=== PATIENT | male | born 1940 | race Caucasian/White ===

== ENCOUNTER 2019-03-07 20:04 | Emergency (ER) | payer MEDICARE ==
--- NOTE | 2019-03-07 20:30 | ED ---
Weakness HPI - General Source: patient, EMS, RN notes reviewed Mode of arrival: EMS Limitations: no limitations - History of Present Illness MD Complaint: generalized weakness <Antione Bustos - Last Filed: 03/07/19 20:44> <Lonny Salter - Last Filed: 03/07/19 23:15> - General Chief complaint: Weakness Stated complaint: weakness Time Seen by Provider: 03/07/19 20:10 - History of Present Illness Initial comments: This is a 78-year-old male with history of leukemia who is brought in by EMS because of generalized weakness. He also states he had rhinorrhea recently but somewhat chronic. He denies any fevers chills nausea vomiting sweats cough he states he's eating well has no focal weakness no other modifying factors at this time. He is currently on oral medication for leukemia. (Antione Bustos) - Related Data Home Medications Medication Instructions Recorded Confirmed Furosemide [Lasix] 40 mg PO DAILY 01/04/14 03/07/19 Simvastatin [Zocor] 40 mg PO HS 01/04/14 03/07/19 Terazosin [Hytrin] 5 mg PO HS 01/04/14 03/07/19 Aspirin EC [Ecotrin Low Dose] 81 mg PO DAILY 03/07/19 03/07/19 Ibrutinib [Imbruvica] 420 mg PO DAILY 03/07/19 03/07/19 Metoprolol Tartrate [Lopressor] 50 mg PO BID 03/07/19 03/07/19 Pioglitazone [Actos] 45 mg PO DAILY 03/07/19 03/07/19 metFORMIN HCL ER [Glucophage Xr] 1,000 mg PO BID 03/07/19 03/07/19 Previous Rx's Medication Instructions Recorded Ciprofloxacin HCl [Cipro] 500 mg PO Q12HR #14 tablet 03/07/19 Allergies Allergy/AdvReac Type Severity Reaction Status Date / Time No Known Allergies Allergy Verified 03/07/19 23:03 Review of Systems ROS Other: All systems not noted in ROS Statement are negative. <Antione Bustos - Last Filed: 03/07/19 20:44> ROS Other: All systems not noted in ROS Statement are negative. <Lonny Salter - Last Filed: 03/07/19 23:15> ROS Statement: Those systems with pertinent positive or pertinent negative responses have been documented in the HPI. 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, just finished chemo round 4 of 4 on 01-10 History of Any Multi-Drug Resistant Organisms: None Reported Past Surgical History: No Surgical Hx Reported Past Anesthesia/Blood Transfusion Reactions: No Reported Reaction Past Psychological History: No Psychological Hx Reported Smoking Status: Former smoker Past Alcohol Use History: Occasional Past Drug Use History: None Reported - Past Family History Father Family Medical History: CVA/TIA Mother Family Medical History: Myocardial Infarction ([place]) <Antione Bustos - Last Filed: 03/07/19 20:44> General Exam Limitations: no limitations General appearance: alert, in no apparent distress Head exam: Present: atraumatic, normocephalic, normal inspection Eye exam: Present: normal appearance, PERRL, EOMI. Absent: scleral icterus, conjunctival injection, periorbital swelling ENT exam: Present: mucous membranes dry, other (Boggy nasal mucosa) Neck exam: Present: normal inspection. Absent: tenderness, meningismus, lymphadenopathy Respiratory exam: Present: normal lung sounds bilaterally. Absent: respiratory distress, wheezes, rales, rhonchi, stridor Cardiovascular Exam: Present: regular rate, normal rhythm, normal heart sounds. Absent: systolic murmur, diastolic murmur, rubs, gallop, clicks GI/Abdominal exam: Present: soft, normal bowel sounds. Absent: distended, tenderness, guarding, rebound, rigid Extremities exam: Present: normal inspection, full ROM, normal capillary refill. Absent: tenderness, pedal edema, joint swelling, calf tenderness Back exam: Present: normal inspection Neurological exam: Present: alert, oriented X3, CN II-XII intact Psychiatric exam: Present: normal affect, normal mood Skin exam: Present: warm, dry, intact, normal color. Absent: rash <Antione Bustos - Last Filed: 03/07/19 20:44> - General Exam Comments Initial Comments: This is a well-developed asthenic appearing male who is awake alert oriented 3 (Antione Bustos) Course <Antione Bustos - Last Filed: 03/07/19 20:44> Vital Signs 03/07/19 03/07/19 03/07/19 20:08 21:31 23:00 Temperature 98.1 F 98.3 F Pulse Rate 80 73 76 Respiratory 20 18 18 Rate Blood Pressure 158/82 140/73 148/74 O2 Sat by Pulse 99 96 99 Oximetry - Reevaluation(s) Reevaluation #1: 03/07/19 20:44 The patient's care will be endorsed to Dr. Salter at our shift change. (Antione Bustos) Medical Decision Making - Lab Data Result diagrams: 03/07/19 20:26 03/07/19 20:26 <Lonny Salter - Last Filed: 03/07/19 23:15> - Medical Decision Making I receive this patient has a sign out, pending the lab results. The patient's results look good. The leukocytosis is markedly improved. There are few white blood cells in the urine. I did discuss the findings with the patient who would prefer to go home and follow with his physician. Given that he was too weak to walk at home, will attempt to ambulate the patient here and then if she is able to manage she can go home with course of antibiotic and follow-up. Return parameters discussed with patient and family. (Lonny Salter) - Lab Data Lab Results 03/07/19 03/07/19 03/07/19 Range/Units 20:26 20:26 20:26 WBC 16.5 H (3.8-10.6) k/uL RBC 4.07 L (4.30-5.90) m/uL Hgb 12.2 L (13.0-17.5) gm/dL Hct 38.6 L (39.0-53.0) % MCV 94.7 (80.0-100.0) fL MCH 30.0 (25.0-35.0) pg MCHC 31.7 (31.0-37.0) g/dL RDW 15.3 (11.5-15.5) % Plt Count 111 L (150-450) k/uL Neutrophils % 33 % Lymphocytes % 60 % Monocytes % 4 % Eosinophils % 0 % Basophils % 0 % Neutrophils # 5.5 (1.3-7.7) k/uL Lymphocytes # 9.8 H (1.0-4.8) k/uL Monocytes # 0.7 (0-1.0) k/uL Eosinophils # 0.1 (0-0.7) k/uL Basophils # 0.1 (0-0.2) k/uL Manual Slide Review Performed Poikilocytosis (manual Present Sodium 140 (137-145) mmol/L Potassium 4.2 (3.5-5.1) mmol/L Chloride 109 H (98-107) mmol/L Carbon Dioxide 22 (22-30) mmol/L Anion Gap 9 mmol/L BUN 17 (9-20) mg/dL Creatinine 1.23 (0.66-1.25) mg/dL Est GFR (CKD-EPI)AfAm 65 (>60 ml/min/1.73 sqM) Est GFR (CKD-EPI)NonAf 56 (>60 ml/min/1.73 sqM) Glucose 143 H (74-99) mg/dL Plasma Lactic Acid [place] 1.7 (0.7-2.0) mmol/L Calcium 8.4 (8.4-10.2) mg/dL Magnesium 1.9 (1.6-2.3) mg/dL Total Bilirubin 0.6 (0.2-1.3) mg/dL AST 18 (17-59) U/L ALT 10 (4-49) U/L Alkaline Phosphatase 35 L (38-126) U/L Creatine Kinase 46 L (55-170) U/L Troponin I (0.000-0.034) ng/mL Total Protein 6.0 L (6.3-8.2) g/dL Albumin 3.6 (3.5-5.0) g/dL Lipase 94 (23-300) U/L Urine Color Urine Appearance (Clear) Urine pH (5.0-8.0) Ur Specific [place] (1.001-1.035) Urine Protein (Negative) Urine Glucose (UA) (Negative) Urine Ketones (Negative) Urine Blood (Negative) Urine Nitrite (Negative) Urine Bilirubin (Negative) Urine Urobilinogen (<2.0) mg/dL Ur Leukocyte Esterase (Negative) Urine RBC (0-5) /hpf Urine WBC (0-5) /hpf Hyaline Casts (0-2) /lpf Urine Mucus (None) /hpf Influenza Type A RNA (Not Detectd) Influenza Type B (PCR) (Not Detectd) 03/07/19 03/07/19 03/07/19 Range/Units 20:26 21:30 21:32 WBC (3.8-10.6) k/uL RBC (4.30-5.90) m/uL Hgb (13.0-17.5) gm/dL Hct (39.0-53.0) % MCV (80.0-100.0) fL MCH (25.0-35.0) pg MCHC (31.0-37.0) g/dL RDW (11.5-15.5) % Plt Count (150-450) k/uL Neutrophils % % Lymphocytes % % Monocytes % % Eosinophils % % Basophils % % Neutrophils # (1.3-7.7) k/uL Lymphocytes # (1.0-4.8) k/uL Monocytes # (0-1.0) k/uL Eosinophils # (0-0.7) k/uL Basophils # (0-0.2) k/uL Manual Slide Review Poikilocytosis (manual Sodium (137-145) mmol/L Potassium (3.5-5.1) mmol/L Chloride (98-107) mmol/L Carbon Dioxide (22-30) mmol/L Anion Gap mmol/L BUN (9-20) mg/dL Creatinine (0.66-1.25) mg/dL Est GFR (CKD-EPI)AfAm (>60 ml/min/1.73 sqM) Est GFR (CKD-EPI)NonAf (>60 ml/min/1.73 sqM) Glucose (74-99) mg/dL Plasma Lactic Acid [place] (0.7-2.0) mmol/L Calcium (8.4-10.2) mg/dL Magnesium (1.6-2.3) mg/dL Total Bilirubin (0.2-1.3) mg/dL AST (17-59) U/L ALT (4-49) U/L Alkaline Phosphatase (38-126) U/L Creatine Kinase (55-170) U/L Troponin I <0.012 (0.000-0.034) ng/mL Total Protein (6.3-8.2) g/dL Albumin (3.5-5.0) g/dL Lipase (23-300) U/L Urine Color Light Yellow Urine Appearance Clear (Clear) Urine pH 6.5 (5.0-8.0) Ur Specific [place] 1.007 (1.001-1.035) Urine Protein Negative (Negative) Urine Glucose (UA) Negative (Negative) Urine Ketones Negative (Negative) Urine Blood Trace H (Negative) Urine Nitrite Negative (Negative) Urine Bilirubin Negative (Negative) Urine Urobilinogen <2.0 (<2.0) mg/dL Ur Leukocyte Esterase Small H (Negative) Urine RBC 3 (0-5) /hpf Urine WBC 19 H (0-5) /hpf Hyaline Casts 1 (0-2) /lpf Urine Mucus Rare H (None) /hpf Influenza Type A RNA Not Detected (Not Detectd) Influenza Type B (PCR) Not Detected (Not Detectd) Disposition <Antione Bustos - Last Filed: 03/07/19 20:44> Is patient prescribed a controlled substance at d/c from ED?: No <Lonny Salter - Last Filed: 03/07/19 23:15> Clinical Impression: Generalized weakness, Urinary tract infection Disposition: HOME SELF-CARE Condition: Fair Instructions (If sedation given, give patient instructions): Weakness (ED), Urinary Tract Infection in Men (ED) Prescriptions: Ciprofloxacin HCl [Cipro] 500 mg PO Q12HR #14 tablet Referrals: Teddy Mcneal MD [Primary Care Provider] - 1-2 days
[2019-03-07 21:04] LABS: Albumin 3.6 g/dL (3.5-5.0); Calcium 8.4 mg/dL (8.4-10.2); Magnesium 1.9 mg/dL (1.6-2.3); Potassium 4.2 mmol/L (3.5-5.1); Total Bilirubin 0.6 mg/dL (0.2-1.3)
[2019-03-07 21:17] LABS: Basophils # (A) 0.1 k/uL (0-0.2); Basophils % (A) 0 %; Eosinophils # (A) 0.1 k/uL (0-0.7); Eosinophils % (A) 0 %; HCT 38.6 % (39.0-53.0); HGB 12.2 gm/dL (13.0-17.5); Lymphocytes # (A) 9.8 k/uL (1.0-4.8); Lymphocytes % (A) 60 %; MCHC 31.7 g/dL (31.0-37.0); MCV 94.7 fL (80.0-100.0); Mean Platelet Volume 10.3; Monocytes # (A) 0.7 k/uL (0-1.0); Monocytes % (A) 4 %; Neutrophils # (A) 5.5 k/uL (1.3-7.7); Neutrophils % (A) 33 %; Platelet Count 111 k/uL (150-450); RBC 4.07 m/uL (4.30-5.90); RDW 15.3 % (11.5-15.5); WBC 16.5 k/uL (3.8-10.6)
--- NOTE | 2019-03-07 21:26 | XR ---
EXAMINATION TYPE: XR chest 2V DATE OF EXAM: 03/07/2019 COMPARISON: 02/03/2014 HISTORY: Weakness TECHNIQUE: FINDINGS: Heart is normal. Lungs are clear of consolidation. There are no hilar masses. Costophrenic angles are clear. There is some spurring in the thoracic spine. Bony thorax is intact. IMPRESSION: No active cardiopulmonary disease. There is clearing of airspace infiltrates in both lung s compared to last exam. Normal heart.
[2019-03-07 21:31] VITALS: RESP 18
[2019-03-07 21:53] LABS: Poikilocytosis (M) Present
[2019-03-07 22:10] LABS: Appearance,Urine Clear (Clear); Bilirubin,Urine Negative (Negative); Blood,Urine Trace (Negative); Color,Urine Light Yellow; Glucose,Urine (UA) Negative (Negative); Hyaline Casts,Urine 1 /lpf (0-2); Ketones,Urine Negative (Negative); Leukocyte Esterase,Urine Small (Negative); Mucus,Urine Rare /hpf; Nitrite,Urine Negative (Negative); PH, Urine 6.5 (5.0-8.0); Protein,Urine Negative (Negative); RBC,Urine 3 /hpf (0-5); Specific Gravity,Urine 1.007 (1.001-1.035); Urobilinogen,Urine <2.0 mg/dL (<2.0); WBC,Urine 19 /hpf (0-5)
[2019-03-07] MEDS ORDERED: LEVOFLOXACIN 750 MG TAB PO STA (22:55)
[2019-03-07 23:38] VITALS: BP 141/72; PULSE 75; TEMP 98.1
== END 2019-03-07 23:25 | disposition home or self-care (01) ==
LOC: EC 20:04
DX: N39.0 Urinary tract infection, site not specified (principal); R53.1 Weakness; C95.90 Leukemia, unspecified not having achieved remission; J34.89 Other specified disorders of nose and nasal sinuses; M19.90 Unspecified osteoarthritis, unspecified site; E78.5 Hyperlipidemia, unspecified; N42.9 Disorder of prostate, unspecified; I10 Essential (primary) hypertension; E11.9 Type 2 diabetes mellitus without complications; Z87.891 Personal history of nicotine dependence; Z79.82 Long term (current) use of aspirin; Z79.84 Long term (current) use of oral hypoglycemic drugs; Z79.899 Other long term (current) drug therapy; Z92.21 Personal history of antineoplastic chemotherapy
CPT/HCPCS: 36415; 71046; 80053; 81001; 82550; 83605; 83690; 83735; 84484; 85025; 87040; 87086; 87502; 93005; 99285

== ENCOUNTER 2019-03-10 13:55 | Inpatient (IN) | payer MEDICARE ==
[2019-03-10 15:16] LABS: Glucose,Whole Blood 117 mg/dL (75-99)
[2019-03-10 15:21] VITALS: PULSE 70; RESP 16
[2019-03-10] MEDS ORDERED: DEXTROSE 5%-0.45% NACL 1,000 ML IV SCH (15:30)
[2019-03-10] MEDS ORDERED: HYDROcodone/APAP 5-325MG 1 EACH TAB PO PRN (15:33)
[2019-03-10] MEDS ORDERED: NALOXONE 0.4 MG/ML 1 ML VIAL IV PRN (15:33)
[2019-03-10] MEDS ORDERED: ACETAMINOPHEN TAB 325 MG TAB PO PRN (15:33)
--- NOTE | 2019-03-10 15:52 | CT ---
EXAMINATION TYPE: CT brain wo con for TPA DATE OF EXAM: 03/10/2019 COMPARISON: None HISTORY: 78-year-old male confusion, Code stroke. Mental status changes. Rule out CVA. TECHNIQUE: Examination was done in axial plane without intravenous contrast. Coronal and sagittal r econstructions performed. CT DLP: 1110.8 mGycm Automated exposure control for dose reduction was used. FINDINGS: There is a sizable mixed density subdural hematoma on the right measuring up to 2.7 cm thick. Most of the hematoma is subacute or chronic with near CSF density but with prominent admixed acute blood als o present. There is slight medial uncal herniation demonstrated and is all seen herniation as well. L eftward midline shift measuring up to 1.4 cm with flattening of the right lateral ventricle and mass effect onto the right cerebral hemisphere. Atherosclerotic calcifications within the carotid siphons. Partially empty sella. Scattered mild mucosal thickening ethmoid air cells and maxillary sinuses. Mastoid air cells are pneu matized. IMPRESSION: 1. Moderate sized subdural hematoma along the right lateral convexity. This is a mixed age subdural h ematoma mostly subacute to chronic blood products but with prominent admixed acute blood as well. 2. Mass effect onto the underlying right cerebral hemisphere results in flattening of the right later al ventricle, subfalcine herniation, early medial right uncal herniation, and 1.4 cm of leftward midl ine shift. Critical findings called to Nurse Graves on 3SCARD at 3:45pm.
--- NOTE | 2019-03-10 16:16 | CT ---
EXAMINATION TYPE: CODE STROKE: CTA head neck DATE OF EXAM: 03/10/2019 COMPARISON: Correlation CT brain same day HISTORY: 78-year-old male confusion, rule out CVA, Code stroke. Mental status changes. TECHNIQUE: Contiguous axial scanning of the head and neck performed with IV Contrast, patient injecte d with 65 mL of Isovue 370. Coronal/sagittal MIP reconstructions performed. 3-D reconstructions gener ated on a dedicated independent workstation. CT DLP: 463.1 mGycm Automated exposure control for dose reduction was used. FINDINGS: NECK: Coronary artery calcifications. Calcified granuloma anterior left upper lobe. Underlying emphysematou s change. LAD calcifications. Mild atherosclerotic arch calcifications within the chart vessel branching anatomy. The right common and internal carotid arteries are patent. Slightly tortuous course of the upper righ t ICA. Left common and internal carotid arteries are patent. There are only mild atherosclerotic calcifications at the bifurcations on both sides. Mild atherosclerotic calcifications proximal left vertebral artery. The vertebral arteries appear cod ominant and otherwise patent throughout the course. HEAD: The vertebral and basilar arteries are patent as is the remainder of the posterior circulation. Mild atherosclerotic calcifications throughout the bilateral carotid siphons weight areas of mild mally rowing. The bilateral internal carotid arteries are patent as is the remainder of the anterior circulation. T here is no compromise of the anterior cerebral arteries given the subfalcine herniation. No aneurysmal change. IMPRESSION: NECK: 1. ONLY MILD ATHEROSCLEROTIC CALCIFICATIONS OF THE BILATERAL BIFURCATIONS. NO SIGNIFICANT STENOSIS OF EITHER COMMON OR INTERNAL CAROTID ARTERIES ON EITHER SIDE. 2. MILD ATHEROSCLEROTIC CALCIFICATIONS AT THE ORIGIN OF THE LEFT VERTEBRAL ARTERY. 3. COPD. HEAD: 1. MILD ATHEROSCLEROTIC CALCIFICATIONS IN THE CAROTID SIPHONS. 2. NO LARGE VESSEL INTRACRANIAL ARTERIAL OCCLUSION, SIGNIFICANT STENOSIS, OR ANEURYSMAL CHANGES SEEN. 3. RIGHT-SIDED SUBDURAL HEMATOMA WITH MASS EFFECT AND LEFTWARD MIDLINE SHIFT DESCRIBED ON CT HEAD REP ORT SAME DAY.
--- NOTE | 2019-03-10 16:33 | P.CONS ---
History of Present Illness - Reason for Consult Consult date: 03/10/19 Medical management Requesting physician: Colten Dickson - Chief Complaint Left-sided weakness - History of Present Illness 78-year-old male with PMH of CLL, diabetes mellitus, hypertension, dyslipidemia presents to the ED as a direct admission from the oncology clinic for left-sided weakness and workup for stroke. Code stroke was called as soon as I was able to see the patient. Patient reports slipping out of his couch on Thursday as he was trying to go to the bathroom. He was brought to the ED at that time. Vital signs at that time was within normal limits except for elevated BP. He leukocytosis of 16.5 and hemoglobin of 12.2 with thrombocytopenia platelet count 111. There is no head imaging done at that time. Patient was discharged home from the ED. His reports that patient has been progressively getting weak since then. During his appointment with his oncologist today there was some concerns for stroke, which prompted direct admission by Dr. Dickson. Patient denies any confusion. He denies any loss of consciousness during the initial fall. He denies any head trauma. He denies any slurred speech or difficulty swallowing. Patient reports left-sided weakness has been ongoing since this fall on Thursday. He denies any dizziness, numbness/tingling of the extremities. Patient denies any headache, lower extremity edema, nausea or vomiting, fever or chills, cough, chest pain, shortness of breath, palpitations, changes in urination or bowel habits. Patient does report intermittent diarrhea but attributes that to the medications he takes for CLL. Review of Systems Pertinent positives and negatives as discussed in HPI, a complete review of systems was performed and all other systems are negative. 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, just finished chemo round 4 of 4 on 01-10 History of Any Multi-Drug Resistant Organisms: None Reported Past Surgical History: No Surgical Hx Reported Past Anesthesia/Blood Transfusion Reactions: No Reported Reaction Past Psychological History: No Psychological Hx Reported Smoking Status: Former smoker Past Alcohol Use History: Occasional Past Drug Use History: None Reported - Past Family History Father Family Medical History: CVA/TIA Mother Family Medical History: Myocardial Infarction ([place]) Medications and Allergies Home Medications Medication Instructions Recorded Confirmed Type Furosemide [Lasix] 40 mg PO DAILY 01/04/14 03/10/19 History Simvastatin [Zocor] 40 mg PO HS 01/04/14 03/10/19 History Terazosin [Hytrin] 5 mg PO HS 01/04/14 03/10/19 History Aspirin EC [Ecotrin Low Dose] 81 mg PO DAILY 03/07/19 03/10/19 History Ciprofloxacin HCl [Cipro] 500 mg PO Q12HR #14 tablet 03/07/19 03/10/19 Rx Ibrutinib [Imbruvica] 420 mg PO DAILY 03/07/19 03/10/19 History Metoprolol Tartrate [Lopressor] 50 mg PO BID 03/07/19 03/10/19 History Pioglitazone [Actos] 45 mg PO DAILY 03/07/19 03/10/19 History metFORMIN HCL ER [Glucophage Xr] 1,000 mg PO BID 03/07/19 03/10/19 History Allergies Allergy/AdvReac Type Severity Reaction Status Date / Time No Known Allergies Allergy Verified 03/10/19 15:13 Physical Exam Vitals: Vital Signs Temp Pulse Resp BP Pulse Ox 03/10/19 15:00 98.1 F 70 16 155/68 97 Intake and Output 03/10/19 03/10/19 03/10/19 06:59 14:59 22:59 Other: Weight 77.111 kg General: [non toxic], [no distress], [appears at stated age] Derm: [warm], [dry] Head: [atraumatic], [normocephalic], [symmetric] Eyes: [EOMI], [no lid lag], [anicteric sclera] Mouth: [no lip lesion], [mucus membranes moist] Cardiovascular: [S1S2 reg], [no murmur], [positive DP pulse bilateral], Lungs: [Decreased breath sounds bilateral], [no rhonchi, no rales] , [no accessory muscle use] Abdominal: [soft], [ nontender to palpation], [no guarding], [no appreciable organomegaly] Ext: [no gross muscle atrophy], [no edema], [no contractures] Neuro: [ CN II-XI grossly intact], [left upper extremity 4 out of 5, left lower extremity 3 out of 5, right upper and right lower extremity 5 out of 5], [sensation intact to touch in all 4 extremities] Psych: [Alert], [oriented], [appropriate affect] Results Labs: Abnormal Lab Results - Last 24 Hours (Table) 03/10/19 Range/Units 15:14 POC Glucose (mg/dL) 117 H (75-99) mg/dL Assessment and Plan Assessment: Left-sided weakness rule out CVA Diabetes mellitus CLL Hypertension Dyslipidemia Patient with left-sided weakness and given comorbidities or concerns for CVA. Plans: Code stroke called. Out of window for TPA. CT head ordered. CTA head ordered. Echocardiogram ordered. Telemetry monitoring. MRI brain ordered. PT, OT/ST consulted. Neurology consulted. Continue Lipitor. Advance neuro checks and fall precautions. Follow swallow eval. Plans: Insulin sliding scale. Regular Accu-Cheks. Hypoglycemic precautions. Plans: Management as per oncology. Plans: Hold metoprolol to allow permissive hypertension for the next 24 hours. Monitor vitals, adjust medications as necessary. Plans: Continue simvastatin. DVT prophylaxis: [SCD boots] Discussed with: [Patient and ] Anticipated discharge: [2-3 days] Anticipated discharge place: [Home] A total of [45] minutes was spent on the care of this complex patient more than 50% of the time was spent in counseling and care coordination. Patient is admitted for anticipated greater than to midnight stay for left-sided weakness and concerns for CVA.
[2019-03-10] MEDS ORDERED: levETIRAcetam IV 500 MG in SODIUM CHLORIDE 0.9% 100 ML IVPB STA (16:42)
--- NOTE | 2019-03-10 16:42 | P.CNNES ---
History of Present Illness Consult date: 03/10/19 Requesting physician: Colten Dickson Reason for Consult: CVA History of Present Illness: Patient is a 78-year-old male receives overload chemotherapy, also has hypertension, diabetes, has been declining since 03/04/2019. Patient apparently collapsed when his legs give out on 03/07/2019. His states that he did not hit his head. Patient was brought to the [facility], where he was evaluated, and had nonfocal examination, observed and released home. According to patient's and son, he he has been slowly getting worse, more difficult to get up from the bed, ambulation and shuffling. He also started noticing left-sided weakness. Patient spoke to his oncologist, who recommended him to go to the the hospital and was admitted as a direct admission. Patient was noted to have left hemiparesis with NIH stroke scale of 2, which prompted stroke code. Patient was not a candidate for TPA, as his symptoms have been present for last several days. Stat computed tomography scan of the head was done. It revealed moderate sized subdural hematoma along the right lateral convexity. This is a mixed 8 subdural hematoma mostly subacute to chronic blood products but with prominent admixed acute blood as well. Mass effect onto the underlying right cerebral hemisphere results in flattening of the right lateral ventricle, subfalcine herniation, early medial right uncal herniation and 1.4 cm of leftward midline shift. I reviewed computed tomography scan of head, and agree with this finding, with evidence of chronic to subacute to acute blood products. Patient had CTA of head, which revealed mild atherosclerotic calcifications in the carotid siphons. No large vessel intracranial arterial occlusion, significant stenosis or aneurysmal changes seen. Right-sided subdural hematoma with mass effect and left word midline shift described on the CT report. CTA of the neck showed only mild atherosclerotic calcifications of the bilateral bifurcations no significant stenosis of either, and or internal carotid arteries on either side. Mild atherosclerotic calcifications at the origin of the left vertebral artery. COPD. Patient's last blood tests from 03/07/2019 shows normal electrolytes, renal functions, liver functions, CPK. CBC showed WBC 16.5 hemoglobin 12.2, platelets are 111. Patient does take aspirin 81 mg daily. Review of Systems Patient denies headache, problem with vision, hoarseness or throat dysphagia. He does complain of weakness of the left side. Denies double vision, denies chest pain shortness of breath wheezing cough abdominal pain nausea vomiting diarrhea. 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 History of Any Multi-Drug Resistant Organisms: None Reported Past Surgical History: No Surgical Hx Reported Additional Past Surgical History / Comment(s): BMB, bilateral cataract removals with lens transplants, colonoscopy. Past Anesthesia/Blood Transfusion Reactions: No Reported Reaction Smoking Status: Former smoker - Past Family History Father Family Medical History: CVA/TIA Mother Family Medical History: Myocardial Infarction ([place]) Medications and Allergies Home Medications Medication Instructions Recorded Confirmed Type Furosemide [Lasix] 40 mg PO DAILY 01/04/14 03/10/19 History Simvastatin [Zocor] 40 mg PO HS 01/04/14 03/10/19 History Terazosin [Hytrin] 5 mg PO HS 01/04/14 03/10/19 History Aspirin EC [Ecotrin Low Dose] 81 mg PO DAILY 03/07/19 03/10/19 History Ciprofloxacin HCl [Cipro] 500 mg PO Q12HR #14 tablet 03/07/19 03/10/19 Rx Ibrutinib [Imbruvica] 420 mg PO DAILY 03/07/19 03/10/19 History Metoprolol Tartrate [Lopressor] 50 mg PO BID 03/07/19 03/10/19 History Pioglitazone [Actos] 45 mg PO DAILY 03/07/19 03/10/19 History metFORMIN HCL ER [Glucophage Xr] 1,000 mg PO BID 03/07/19 03/10/19 History Allergies Allergy/AdvReac Type Severity Reaction Status Date / Time No Known Allergies Allergy Verified 03/10/19 15:13 Physical Examination - Vital Signs Vital Signs: Vital Signs Temp Pulse Resp BP Pulse Ox 03/10/19 15:00 98.1 F 70 16 155/68 97 Intake and Output 03/10/19 03/10/19 03/10/19 06:59 14:59 22:59 Other: Weight 77.111 kg On examination patient is an elderly male, in no distress. He is alert and awake fully oriented. He knows it is February 2019 and that he is in [facility] and his date of and name of the current president of [employer] [facility]. His speech and language functions are normal. Attention and concentration fund of knowledge appears adequate. On cranial examination his left pupil appears slightly larger as compared to the right. Both are round and reacting. Visual carrillo are full on confrontation, extraocular muscles are intact. He has left facial asymmetry and tongue protrudes the midline. On muscle strength testing patient has obvious left pronator drift. The strength is normal in the right arm and right leg. On the left side, his deltoid is 4+, medical research tech 5-, biceps 5-, triceps 5-, hip flexion 5-as compared to the right. Ankles and toes are normal bilaterally. Reflexes symmet lisa and patient has been Babinski on the left, but downgoing plantar on the right. Sensory touch is equal with no neglect on double simultaneous stimulation. No ataxia for [id number] testing although he is slightly slow for rapid finger tapping on the left. Gait deferred. No obvious bruit S1 and S2 audible. Results - Laboratory Findings Abnormal Lab Findings: Abnormal Labs 03/10/19 15:14 POC Glucose (mg/dL) 117 H Assessment and Plan Assessment: * Acute large right subdural hematoma, with mass effect and midline shift to the left, with some degree of uncal herniation. Patient does have mild left hemiparesis noted as per examination but mentation is completely normal. * Hypertension * Diabetes * CLL Plan: * Patient needs to be transferred to a tertiary care center, where neurosurgery is available. Patient probably will need radha hole craniotomy today. * Discussed with primary attending on the phone and informed the results of CT head and urgency of of the need to transfer. Patient possibly going to [facility] [place]. * We will start on Keppra 500 mg twice a day IV empirically to prevent seizures. * Hold off on aspirin and any antiplatelets or anticoagulants. * Keep the head end of bed elevated to 45. * Consider mannitol or hypertonic saline. * Discussed with patient's family in detail.
[2019-03-10] MEDS ORDERED: SALINE IV ONE (17:00)
[2019-03-10] MEDS ORDERED: MANNITOL 20% IV ONE (17:00)
[2019-03-10 17:02] LABS: ALT 11 U/L (4-49); AST 26 U/L (17-59); African American GFR (CKD) 59 (>60 ml/min/1.73 sqM); Albumin 3.7 g/dL (3.5-5.0); Alkaline Phosphatase <20 U/L (38-126); Anion Gap 10 mmol/L; Blood Urea Nitrogen 21 mg/dL (9-20); Calcium 8.7 mg/dL (8.4-10.2); Carbon Dioxide 25 mmol/L (22-30); Chloride 106 mmol/L (98-107); Glucose 106 mg/dL (74-99); Non-African American GFR(CKD) 51 (>60 ml/min/1.73 sqM); Sodium 141 mmol/L (137-145); Total Bilirubin 0.9 mg/dL (0.2-1.3); Total Protein 6.2 g/dL (6.3-8.2)
[2019-03-10 17:03] LABS: HCT 39.7 % (39.0-53.0); HGB 12.7 gm/dL (13.0-17.5); Hypochromasia Slight; MCHC 32.1 g/dL (31.0-37.0); MCV 96.5 fL (80.0-100.0); Mean Platelet Volume 10.2; Platelet Count 113 k/uL (150-450); RBC 4.11 m/uL (4.30-5.90)
[2019-03-10 17:10] LABS: Potassium 5.1 mmol/L (3.5-5.1)
[2019-03-10] MEDS ORDERED: INSULIN ASPART (NovoLOG) 100 UNIT/ML VIAL SQ SCH (17:30)
[2019-03-10 17:31] LABS: Monocytes # (M) 1.12 k/uL (0-1.0); Neutrophils # (M) 4.48 k/uL (1.3-7.7); Neutrophils % (M) 32 %; Nucleated Red Blood Cells 0 /100 WBC (0-0); Total Cells Counted 100
[2019-03-10 17:32] LABS: Poikilocytosis (M) Present
[2019-03-10 17:33] LABS: Large Platelets Present
[2019-03-10 17:34] LABS: Polychromasia Present
[2019-03-10 17:56] VITALS: BP 138/64; TEMP 98
[2019-03-10] MEDS ORDERED: DOXAZOSIN 4 MG TAB PO SCH (21:00)
[2019-03-10] MEDS ORDERED: METOPROLOL TARTRATE 50 MG TAB PO SCH (21:00)
[2019-03-10] MEDS ORDERED: ATORVASTATIN 20 MG TAB PO SCH (21:00)
[2019-03-10] MEDS ORDERED: HEPARIN SODIUM,PORCINE 5,000 UNIT/ML 1 ML VIAL SQ SCH (21:00)
[2019-03-11] MEDS ORDERED: FUROSEMIDE 40 MG TAB PO SCH (09:00)
[2019-03-11] MEDS ORDERED: IMBRUVICA 420 MG PO SCH (09:00)
--- NOTE | 2019-03-18 10:09 | CDI ---
Documentation Clarification Form Date: 03/18/19 From: Beulah Benítez [facility] Phone: If you have a question about this query, please contact Christina Nick, Simulation Specialist at [phone] between 8am and 5pm. Admit Date: 03/10/19 Discharge Date: 03/10/19 Patient Name: Gurwinder Ocampo Visit Number: [id number] ATTENTION: The Clinical Documentation Specialists (CDI) and [facility] Coding Staff appreciate your assistance in clarifying documentation. Please respond to the clarification below the line at the bottom and electronically sign. The CDI & [facility] Coding staff will review the response and follow-up if needed. Please note: Queries are made part of the Legal Health Record. If you have any questions, please contact the author of this message via ITS. Dear Dr. Dickson, Your patient has the documented diagnosis of subdural hematoma with subfalcine herniation and recent fall/collapse, slipping out of his couch. stated he did not hit his head. Consult notes dated 03/10/19. A relationship between diagnoses cannot be assumed unless documented as such by the attending physician. In order to capture the severity of condition; please document the relationship, if any, between these diagnoses. History/Risk Factors:CLL, HTN, Hx of Chemo, DM, DJD, Family Hx CVA Clinical Indicators: Left sided hemiplegia, NIHSS score 2 Treatment: Transferred to tertiary care center Please clarify and document your clinical opinion if any relationship (due to, caused by, secondary to) exists between these two diagnoses. Please include clinical findings supporting your diagnosis. Traumatic subdural hemorrhage w/ no loss of consciousness Traumatic subdural hemorrhage w/ loss of consciousness Non-traumatic subdural hemorrhage Other explanation of clinical findings (please specify) Unable to determine (no explanation for clinical findings) See H&P and Consult MTDD
--- NOTE | 2019-03-31 09:55 | P.HPIM ---
History of Present Illness H&P Date: 03/10/19 Chief Complaint: AMS Mr. Ocampo was being seen by Dr. Dickson in the office for acute visit on 03/10/19, generally not doing well, severe generalized weakness, mostly L sided X 2 weeks, eating/drinking well, no mental status changes. He was directly admitted from the office for CT head, revealed subdural hematoma, pt was transferred by Attending to [facility]. Pt was not seen prior to transfer. Pt has Hx of CLL, Stage 0, diagnosed in 1998, observed for years. He had bone marrow replaced with CLL, no transformation, given R-CVP x 3 cycles, stopped due to poor tolerance. 01/07 started on Ibrutinib and is on currently. 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 History of Any Multi-Drug Resistant Organisms: None Reported Past Surgical History: No Surgical Hx Reported Additional Past Surgical History / Comment(s): BMB, bilateral cataract removals with lens transplants, colonoscopy. Past Anesthesia/Blood Transfusion Reactions: No Reported Reaction Past Psychological History: No Psychological Hx Reported Smoking Status: Former smoker Past Alcohol Use History: None Reported Past Drug Use History: None Reported - Past Family History Father Family Medical History: CVA/TIA Mother Family Medical History: Myocardial Infarction ([place]) Medications and Allergies Home Medications Medication Instructions Recorded Confirmed Type Furosemide [Lasix] 40 mg PO DAILY 01/04/14 03/10/19 History Simvastatin [Zocor] 40 mg PO HS 01/04/14 03/10/19 History Terazosin [Hytrin] 5 mg PO HS 01/04/14 03/10/19 History Aspirin EC [Ecotrin Low Dose] 81 mg PO DAILY 03/07/19 03/10/19 History Ciprofloxacin HCl [Cipro] 500 mg PO Q12HR #14 tablet 03/07/19 03/10/19 Rx Ibrutinib [Imbruvica] 420 mg PO DAILY 03/07/19 03/10/19 History Metoprolol Tartrate [Lopressor] 50 mg PO BID 03/07/19 03/10/19 History Pioglitazone [Actos] 45 mg PO DAILY 03/07/19 03/10/19 History metFORMIN HCL ER [Glucophage Xr] 1,000 mg PO BID 03/07/19 03/10/19 History Allergies Allergy/AdvReac Type Severity Reaction Status Date / Time No Known Allergies Allergy Verified 03/10/19 15:13 Results CBC & Chem 7: 03/10/19 16:28 03/10/19 16:28 CT Scan - head: report reviewed Thrombosis Risk Factor Assmnt - Choose All That Apply Any of the Below Risk Factors Present?: Yes Each Factor Represents 1 point: Obesity (BMI >25) Other Risk Factors: Yes Each Risk Factor Represents 2 Points: Malignancy Each Risk Factor Represents 3 Points: Age 75 years or older Other congenital or acquired thrombophilia - If yes, enter type in comment: No Thrombosis Risk Factor Assessment Total Risk Factor Score: 6 Thrombosis Risk Factor Assessment Level: High Risk Assessment and Plan (1) CVA (cerebral vascular accident) Narrative/Plan: STAT CT head showed subdural hematoma, [facility] Status: Acute Priority: High Code(s): I63.9 - CEREBRAL INFARCTION, UNSPECIFIED SNOMED Code(s): 741382533 (2) CLL (chronic lymphocytic leukemia) Narrative/Plan: Hx of, controlled on oral Ibrutinib. Status: Chronic Priority: Low Code(s): C91.10 - CHRONIC LYMPHOCYTIC LEUK OF B-CELL TYPE NOT ACHIEVE REMIS SNOMED Code(s): 59165101
== END 2019-03-10 17:35 | disposition short-term general hospital (02) | DRG 85 ==
LOC: 5NMEDONC 14:08 → 3SCARD 15:28
PROVIDERS: ADMIT Internal Medicine Hematology & Oncology; ATTEND Internal Medicine Hematology & Oncology
DX: S06.5X0A Traumatic subdural hemorrhage without loss of consciousness, initial encounter (principal); G93.5 Compression of brain; G81.94 Hemiplegia, unspecified affecting left nondominant side; C91.10 Chronic lymphocytic leukemia of B-cell type not having achieved remission; R29.702 NIHSS score 2; I10 Essential (primary) hypertension; E78.5 Hyperlipidemia, unspecified; E11.9 Type 2 diabetes mellitus without complications; D69.6 Thrombocytopenia, unspecified; N42.9 Disorder of prostate, unspecified; J44.9 Chronic obstructive pulmonary disease, unspecified; K21.9 Gastro-esophageal reflux disease without esophagitis; M19.90 Unspecified osteoarthritis, unspecified site; M47.812 Spondylosis without myelopathy or radiculopathy, cervical region; Z79.82 Long term (current) use of aspirin; Z79.84 Long term (current) use of oral hypoglycemic drugs; Z79.899 Other long term (current) drug therapy; Z92.21 Personal history of antineoplastic chemotherapy; Z87.891 Personal history of nicotine dependence; Z87.01 Personal history of pneumonia (recurrent); Z98.42 Cataract extraction status, left eye; Z82.3 Family history of stroke; Z96.1 Presence of intraocular lens; Z87.440 Personal history of urinary (tract) infections; Z87.11 Personal history of peptic ulcer disease; Z98.41 Cataract extraction status, right eye; Z82.49 Family history of ischemic heart disease and other diseases of the circulatory system; W07.XXXA Fall from chair, initial encounter; Y92.009 Unspecified place in unspecified non-institutional (private) residence as the place of occurrence of the external cause
CPT/HCPCS: 70450; 70496; 70498; 80053; 84484; 85025; 87040